=== PATIENT | male | born 1935 | race Caucasian/White ===

== ENCOUNTER 2019-03-18 17:59 | Inpatient (IN) | payer OTHER ==
[~2019-03-18] VITALS: Ht 162.6 cm; Wt 105.0 kg
[~2019-03-18 17:59] MED LIST: ACTOS; ASPI325EC; ATEN100; ATEN100 PO; ATENOLOL; Acidophilus La100 GM PO; Bactrim 400-801 EACH PO; CLIN150 PO; DOCU100 PO; FENO145; FENO145 PO; FURO20; GLIM4; GLIM4 PO; GLIMEPIRIDE; GLUCOPHAGE; LEVFLO500 PO; LEVO750 PO; LISI20 PO; METF500 PO; NATE60 PO; ONDA4; Omeprazole20 M1; PIOG45 PO; Prednisone20 MG PO; RANI150 PO; RANITIDINE; ROBITUSSIN COU237 ML PO; TRICOR; Zithromax250 MG PO; [UNRECOGNIZED DRUG - REMARK]
[2019-03-18 19:07] LABS: BASOPHILS ABSOLUTE AUTO 0.01 K/mm3 (0.00-0.23); BASOPHILS PERCENT AUTO 0 % (0-2); EOSINOPHILS PERCENT AUTO 0 % (0-6); Hematocrit 31.5 % (37.0-53.0); Hemoglobin 9.9 g/dL (13.5-17.5); IMMATURE GRAN ABSOLUTE AUTO 0.08 K/mm3 (0.00-0.10); IMMATURE GRAN PERCENT AUTO 1 % (0-1); LYMPHOCYTES PERCENT AUTO 6 % (21-46); MONOCYTES ABSOLUTE AUTO 0.65 K/mm3 (0.16-1.47); MONOCYTES PERCENT AUTO 8 % (4-13); Mean Corpuscular HGB Conc 31.4 g/dL (31.5-36.5); Mean Corpuscular Volume 96 fL (80-100); Mean Platelet Volume 10.4 fL (9.1-12.4); NEUTROPHILS ABSOLUTE AUTO 6.99 K/mm3 (1.96-9.15); NEUTROPHILS PERCENT AUTO 85 % (41-73); Platelet Count 139 K/mm3 (150-400); RDW Coefficient Variation 14.6 % (11.7-14.2); RDW Standard Deviation 51.5 fL (35.1-46.3); White Blood Cell Count 8.23 K/mm3 (4.00-11.30)
[2019-03-18] MEDS ORDERED: Zantac150 MG PO (19:21)
[2019-03-18] MEDS ORDERED: ATOR10 PO (19:22)
[2019-03-18] MEDS ORDERED: TRADJENTA5 MG PO (19:22)
[2019-03-18] MEDS ORDERED: METO50 PO (19:22)
[2019-03-18 19:23] LABS: Albumin, Blood 2.4 g/dL (3.4-5.0); Albumin/Globulin Ratio 0.5 (0.8-1.8); Bilirubin, Total 0.7 mg/dL (0.1-1.0); Bun/Creatinine Ratio 17.4 (12.0-20.0); Calcium, Blood 8.8 mg/dL (8.5-10.1); Creatinine, Blood 1.72 mg/dL (0.60-1.20); Globulin, Blood 4.7 g/dL (2.2-4.0); Potassium, Blood 4.2 mmol/L (3.5-5.5); Total Protein, Blood 7.1 g/dL (6.4-8.2)
[2019-03-18] MEDS ORDERED: FURO80 PO (19:23)
[2019-03-18] MEDS ORDERED: Aspir 8181 MG PO (19:23)
[2019-03-18] MEDS ORDERED: GLIM4 PO (19:23)
[2019-03-18] MEDS ORDERED: Omeprazole20 M1 PO (19:24)
[2019-03-18] MEDS ORDERED: INSULANPEN SC (19:24)
[2019-03-18] MEDS ORDERED: BENZ100A PO (19:24)
[2019-03-18] MEDS ORDERED: ALBU90OI INH (19:25)
[2019-03-18] MEDS ORDERED: TIOT18 INH (19:25)
[2019-03-18] MEDS ORDERED: Potassium Chlo20 ME1 PO (19:27)
[2019-03-18] MEDS ORDERED: FENO145 PO (19:28)
[2019-03-18] MEDS ORDERED: TRAZ50 PO (19:28)
[2019-03-18] MEDS ORDERED: BUDE10.22 INH (19:29)
[2019-03-18] MEDS ORDERED: AMLO10 PO (19:30)
--- NOTE | 2019-03-19 00:01 | NUR ---
PATIENT IS A NEW ADMIT FROM THE ED. AXOX 3 W/CONFUSION AT TIMES. FOUR PERSON TRANSFER FROM [facility] TO BED. ON 5L O2 NC AND 2L BASELINE. PATIENT ORIENTED TO ROOM AND CALL LIGHT SYSTEM. TANACROSS AND CBG 74. PRODUCTIVE COUGH. DENIES PAIN AND N/V. WILL CONTINUE TO MONITOR.
--- NOTE | 2019-03-19 00:05 | NUR ---
PATIENT STARTED ON NS AT 150 mL/HR X ONE LITER. IV ABX INFUSING. TOOK MEDICATION WHOLE WITH WATER. REFUSED LANTUS, CBG 74. RT IN FOR BREATHING TX. PATIENT REPORTS BREATHING EASIER THAN AT HOME. CALL LIGHT IN REACH. WILL CONTINUE TO MONITOR.
--- NOTE | 2019-03-19 04:15 | NUR ---
SHIFT SUMMARY PATIENT HAD NO ACUTE CHANGES OBSERVED THIS SHIFT. AXO X3 AND TWO PERSON ASSIST TO [facility]. [place]. PATIENT REPORTED INCREASED WEAKNESS AND USES CANE OR WALKER AT HOME. PIV REMAINS INTACT. NS INFUSING AT 150 mL/HR X ONE LITER. IV ABXS INFUSED. ON 5 L O2 NC AND 2L BASELINE. SOB W/EXERTION. RT IN FOR BREATHING TX. VSS/AFEBRILE. DENIES PAIN AND N/V. CBG 74 AND PATIENT REFUSED LANTUS 70 UNITS SC. DESYREL 50 MG GIVEN PRN FOR INSOMNIA PER EMAR. PATIENT ABLE TO SLEEP AND COUGH REDUCED. CALL LIGHT IN REACH. BED IN LOWEST POSITION. WILL CONTINUE TO MONITOR UNTIL DAY SHIFT NURSE ASSUMES CARE.
[2019-03-19 05:23] LABS: Bun/Creatinine Ratio 15.5 (12.0-20.0); Calcium, Blood 8.3 mg/dL (8.5-10.1); Creatinine, Blood 2.2 mg/dL (0.60-1.20)
--- NOTE | 2019-03-19 05:59 | NUR ---
cL GLUCOSE FROM LAB: CBG 43. HOSPITALIST DR LEAL NOTIFIED AND ORDERED 1/2 AMP OF D50 AND RECHECK IN ONE HOUR.
--- NOTE | 2019-03-19 09:45 | NUR ---
BLOOD SUGAR AFTER BREAKFAST, OJ, & A MORNING SNACK, PT BLOOD SUGAR INCREASED TO 119. WILL CONTINUE TO MONITOR.
--- NOTE | 2019-03-19 13:22 | NUR ---
O2 REMOVED PT SATING AT 92 ON RA. PT HAS HAD O2 OFF MOST THE DAY DUE TO A DRY NOSE. O2 SATS MAINTAINED ON RA. PT STATES HE ONLY WEARS O2 AT NIGHT.
[2019-03-19 14:47] LABS: Source, Urine Clean Catch
[2019-03-19 14:54] LABS: Bilirubin, Urine Neg (Neg); Blood, Urine 2+ (Neg); Glucose Qualitative, Urine 1+ (Neg); Ketones, Urine Neg (Neg); Leukocyte Esterase, Urine 1+ (Neg); Nitrite, Urine Neg (Neg); Protein, Urine 3+ (Neg); Urobilinogen, Urine NORM (Normal)
[2019-03-19 15:02] LABS: Appearance, Urine Clear (Clear); Color, Urine Yellow (P-Yellow)
[2019-03-19 15:23] LABS: Bacteria Many /hpf; White Blood Cells, Urine 0-2 /hpf (0-5)
[2019-03-19 15:24] LABS: Squamous Epithelial Cells Mod /hpf (Few)
--- NOTE | 2019-03-19 16:30 | NUR ---
SHIFT SUMMARY PT UP IN CHAIR MOST THIS SHIFT. PT AMBULATED TO BATHROOM SBA WITH AIDE THIS SHIFT. URINE CULTURE COLLECTED. PT PRIMARILY INC. CONFIRMED WITH PT THAT THIS IS NORMAL FOR THE PT. NO OTHER CHANGES IN ASSESSMENT AT THIS TIME. VSS. AT BEDSIDE. WILL CONTINUE TO MONITOR UNTIL TURNOVER IS COMPLETE.
--- NOTE | 2019-03-19 22:43 | NUR ---
CBG 396. PATIENT LANTUS DC ON DAY SHIFT. HOSPITALIST DR SHAH ORDERED HUMALOG 5 UNITS MED SCALE X ONE. WILL CONTINUE TO MONITOR.
--- NOTE | 2019-03-20 04:08 | NUR ---
SHIFT SUMMARY PATIENT CBG 396 AND EVENING LANTUS DC'D ON DAY SHIFT. HOSPITALIST DR SHAH ORDERED HUMALOG 5 UNITS X ONE FOR COVERAGE. 5 UNITS GIVEN EARLIER BEFORE DINNER BY DAY RN PER SLIDING SCALE. AXOX 3 AND SBA TO BR W/FWW. RT IN FOR BREATHING TX. PATIENT HAD MINIMAL COUGHING THIS SHIFT VS LAST NOC SHIFT. DESYREL 50 MG GIVEN FOR INSOMNIA. VSS/AFBERILE. DENIES PAIN, SOB, AND N/V. CALL LIGHT IN REACH. BED IN LOWEST POSITION. WILL CONTINUE TO MONITOR UNTIL DAY SHIFT NURSE ASSUMES CARE.
[2019-03-20 05:03] LABS: Hematocrit 27.2 % (37.0-53.0); Hemoglobin 8.3 g/dL (13.5-17.5); Mean Corpuscular HGB 29.4 pg (26.0-34.0); Mean Corpuscular HGB Conc 30.5 g/dL (31.5-36.5); Mean Corpuscular Volume 97 fL (80-100); Mean Platelet Volume 11.1 fL (9.1-12.4); Platelet Count 124 K/mm3 (150-400); RDW Coefficient Variation 14.2 % (11.7-14.2); RDW Standard Deviation 50.3 fL (35.1-46.3); Red Blood Cell Count 2.82 M/mm3 (4.30-5.90); White Blood Cell Count 4.13 K/mm3 (4.00-11.30)
[2019-03-20 05:21] LABS: Bun/Creatinine Ratio 21.7 (12.0-20.0); Calcium, Blood 8.8 mg/dL (8.5-10.1); Creatinine, Blood 1.84 mg/dL (0.60-1.20); Potassium, Blood 5.2 mmol/L (3.5-5.5)
--- NOTE | 2019-03-20 07:17 | NUR ---
BLOOD SUGAR 403. DR. PLUMMER CALLED & NOTIFIED OF PT BLOOD SUGAR OF 403. DR. PLUMMER STATED TO FOLLOW SLIDING SCALE & HE WILL REVIEW PT CHART & PLACE FURTHER ORDERS NEEDED. WILL RECHECK AFTER COVERAGE.
[2019-03-20 07:47] LABS: Percent Saturation 8.2 % (20.0-50.0)
--- NOTE | 2019-03-20 08:51 | NUR ---
BLOOD SUGAR OF 364. DR. PLUMMER CALLED & NOTIFIED THAT PT BLOOD SUGAR REMAINS ELEVATED AT 364 AFTER 12 UNITS OF HUMALOG THIS AM. PT GIVEN 30 UNITS OF LANTUS ORDERED WELL. DR. PLUMMER STATED TO RECHECK AT LUNCHTIME & ALLOW FOR LONG LANTUS TO START WORKING. WILL CONTINUE TO MONITOR.
--- NOTE | 2019-03-20 16:53 | NUR ---
SHIFT SUMMARY PT CONTINUES TO TOLERATE RA WHILE AWAKE. PT DENIED PAIN THIS SHIFT. BLOOD SUGARS REMAINVERY ELEVATED. DR. PLUMMER AWARE. PT MEDICATED PER EMAR FOR HYPERGLYCEMIA. NO OTHER CHANGES IN ASSESSMENT AT THIS TIME. VSS. WILL CONTINUE TO MONITOR UNTIL TURNOVER IS COMPLETE.
--- NOTE | 2019-03-21 04:24 | NUR ---
SHIFT SUMMARY- PT. AWAKE MOST OF THE NIGHT SITTING UP ON THE SIDE OF THE BED. NO APPARENT DISTRESS NOTED. PT. HAS OCCASIONAL PRODUCTIVE COUGH. IV PULLED OUT WHILE UP TO THE BATHROOM. OBTAINED NEW ACCESS, PT. TOLERATED WELL. DENIED ANY PAIN OR DISCOMFORT T/O THE NIGHT. CALL LIGHT WITHIN REACH AND SIDE RAILS UP X2. WILL CONT TO MONITOR.
[2019-03-21 04:57] LABS: Hematocrit 29.1 % (37.0-53.0); Hemoglobin 9.2 g/dL (13.5-17.5); Mean Corpuscular HGB Conc 31.6 g/dL (31.5-36.5); Mean Corpuscular Volume 95 fL (80-100); Mean Platelet Volume 10.8 fL (9.1-12.4); Platelet Count 171 K/mm3 (150-400); RDW Coefficient Variation 14.2 % (11.7-14.2); Red Blood Cell Count 3.07 M/mm3 (4.30-5.90); White Blood Cell Count 8.33 K/mm3 (4.00-11.30)
[2019-03-21 05:20] LABS: Bun/Creatinine Ratio 25.9 (12.0-20.0); Calcium, Blood 9.4 mg/dL (8.5-10.1); Creatinine, Blood 1.62 mg/dL (0.60-1.20); Potassium, Blood 5.6 mmol/L (3.5-5.5)
[2019-03-21 12:24] LABS: Bun/Creatinine Ratio 28.8 (12.0-20.0); Calcium, Blood 9.7 mg/dL (8.5-10.1); Creatinine, Blood 1.6 mg/dL (0.60-1.20); Potassium, Blood 5.6 mmol/L (3.5-5.5)
[2019-03-21] MEDS ORDERED: BASAGLAR K100 UNIT/1 SC (13:37)
[2019-03-21] MEDS ORDERED: Humalog100 UNIT/1 SC (13:39)
[2019-03-21] MEDS ORDERED: HIGH POTENCY P1 EACH PO (13:43)
[2019-03-21] MEDS ORDERED: PRED20 PO (13:43)
[2019-03-21] MEDS ORDERED: COMBIVENT RESPIM4 GM INH (13:44)
[2019-03-21] MEDS ORDERED: METAMUCIL0.4 GM PO (13:45)
[2019-03-21] MEDS ORDERED: AMOX875 PO (13:46)
--- NOTE | 2019-03-21 18:13 | NUR ---
PATIENT IS ALERT AND ORIENTED. BLOOD POTASSIUM LEVEL WAS 6.[address] PLUMMER ORDERED VELTASSA AND REGULAR INSULIN IV TO LOWER THE BLOOD POTASSIUM LEVEL. PATIENT CAN MAKE HIS NEEDS KNOWN. HE IS INDEPENDENT TO THE BATHROOM. WILL CONTINUE TO MONITOR
[2019-03-22 05:25] LABS: Bun/Creatinine Ratio 28.2 (12.0-20.0); Creatinine, Blood 1.56 mg/dL (0.60-1.20); Potassium, Blood 5.6 mmol/L (3.5-5.5)
--- NOTE | 2019-03-22 05:48 | NUR ---
SHIFT SUMMARY; SALONI IS A 83 Y/O MALE INDEPENDENT IN THE ROOM. HAS BEEN GRUMPY MOST OF THE SHIFT DUE TO WANTING TO GO HOME. STATES HE DOES NOT PLAN TO STAY ANOTHER NIGHT. CHEM BG IN THE 300'S THIS SHIFT. GAVE HIM THE 45 UNITS OF LANTUS. STATES HE NORMALLY TAKES 70 UNITS AND IS FRUSTRATED WITH THE CHANGES, EXPLAINED REASONS WHY MD MIGHT CHANGE DOSAGES OF MEDS, STATES HE KNOWS. IV INFUSED ANTIBOTICS WITH NO PROBLEMS. POTASSIUM NOW DOWN TO 5.6 ALMOST TO NORMAL LEVELS FROM THE 6.1 IT WAS. HE IS STILL ASYMTPOMTIC. NO OTHER ACUTE CHANGES OCCURED THIS SHIFT. SLEPT OFF AND ON THROUGHOUT THE NIGHT. CALL LIGHT REMAINED IN REACH AND USED APPROPRIATLY. WILL REPORT TO DAY SHIFT RN.
[2019-03-22] MEDS ORDERED: HYDCOR2.5C PR (10:16)
[2019-03-22] MEDS ORDERED: LEVO750 PO (10:17)
--- NOTE | 2019-03-22 11:05 | NUR ---
PT DISCHARGED TO HOME. TRANSPORTATION BY . PT PROVIDED DISCHARGE PAPERWORK AND EDUCATION. PT STATED UNDERSTANDING OF DISCHARGE EDUCATION. PT TRANSPORTED TO VEHICLE BY WHEELCHAIR. PT ON ROOM AIR WITHOUT DIFFICULTY BREATHING. PT TRANSFERED TO WHEELCHAIR AND FROM WHEELCHAIR TO VEHICLE ON OWN. PT WAS UP IN ROOM WITHOUT ASSIST PRIOR TO DISCHARGE. PT BELONGINGS WITH PT ON DISCHARGE.
== END 2019-03-22 10:56 | disposition home or self-care (01) | DRG 190 ==
LOC: ER 17:59 → MEDS 18:00 → ER 18:00 → MEDS 22:20 → ENPENDDIS 03-21 11:17 → MEDS 03-22 10:56
PROVIDERS: Emergency Medicine; Internal Medicine; ADMIT Hospitalist
DX: J44.1 Chronic obstructive pulmonary disease with (acute) exacerbation (principal); J18.9 Pneumonia, unspecified organism; J44.0 Chronic obstructive pulmonary disease with (acute) lower respiratory infection; N18.3 Chronic kidney disease, stage 3 (moderate); I12.9 Hypertensive chronic kidney disease with stage 1 through stage 4 chronic kidney disease, or unspecified chronic kidney disease; E11.22 Type 2 diabetes mellitus with diabetic chronic kidney disease; D63.1 Anemia in chronic kidney disease; I25.10 Atherosclerotic heart disease of native coronary artery without angina pectoris; E87.5 Hyperkalemia; E78.00 Pure hypercholesterolemia, unspecified; K21.9 Gastro-esophageal reflux disease without esophagitis; Z99.81 Dependence on supplemental oxygen; Z87.891 Personal history of nicotine dependence; Z79.84 Long term (current) use of oral hypoglycemic drugs; Z79.82 Long term (current) use of aspirin; Z79.4 Long term (current) use of insulin; Z79.899 Other long term (current) drug therapy
CPT/HCPCS: 36415; 71046; 80048; 80053; 81001; 82728; 82947; 83540; 83550; 83605; 83880; 84132; 84145; 85025; 85027; 87040; 87086; 92610; 93005; 93010; 94640; 94760; 96361; 96365; 96366; 96367; 96372; 97116; 97161; 97165; 97530; 99285-25; G0378; J0696; J1644; J1650; J1815; J2543; J7030; J7050; J7512; J7799